=== PATIENT | female | born 1960 | race Caucasian/White ===

== ENCOUNTER 2023-06-04 05:19 | Emergency (ER) | payer BC ==
[~2023-06-04] VITALS: Ht 162.6 cm; Wt 54.4 kg
[2023-06-04 06:17] VITALS: BP 124/72; TEMP 98.4
[2023-06-04] MEDS ORDERED: TDAP [DIPH/PERTUSSIS/TET] 0.5 ML VIAL IM ONE (06:32)
[2023-06-04] MEDS ORDERED: LET SOLN TOPICAL 8 ML UDC TP ONE (06:32)
[2023-06-04] MEDS: TDAP [DIPH/PERTUSSIS/TET] 0.5 ML VIAL IM ONE (06:39)
[2023-06-04] MEDS: LET SOLN TOPICAL 8 ML UDC TP ONE (06:39)
[2023-06-04] MEDS ORDERED: AMOX-430 PO (07:39)
[2023-06-04 07:47] VITALS: O2SAT 99
== END 2023-06-04 07:48 | disposition home or self-care (01) ==
LOC: ER 05:22
DX: S01.112A Laceration without foreign body of left eyelid and periocular area, initial encounter (principal); W55.03XA Scratched by cat, initial encounter; Y93.89 Activity, other specified; Y92.89 Other specified places as the place of occurrence of the external cause; Y99.8 Other external cause status
CPT/HCPCS: 90715